=== PATIENT | male | born 1940 | race Caucasian/White ===

== ENCOUNTER 2022-10-01 07:14 | Inpatient (IN) | payer OTHER ==
[~2022-10-01] VITALS: Ht 180.3 cm; Wt 77.1 kg
[2022-10-01 07:15] VITALS: BP_SYST 113
[2022-10-01] MEDS ORDERED: ASPIRIN 81 MG TAB.CHEW PO ONE (07:30)
[2022-10-01] MEDS ORDERED: dilTIAZem HCL IVP 5 MG/ML VIAL IVP ONE ×2 (07:30→09:15)
[2022-10-01 07:45] LABS: BASOPHILS # (AUTO) 0.1 K/uL (0.0-0.2); BASOPHILS % (AUTO) 0.9 % (0.0-2.0); EOSINOPHILS # (AUTO) 0.1 K/uL (0.0-0.4); EOSINOPHILS % (AUTO) 2.4 % (0.0-4.0); LYMPHOCYTES # (AUTO) 1.1 K/uL (1.0-5.5); LYMPHOCYTES % (AUTO) 19.7 % (20.5-51.5); MEAN CORPUSCULAR HEMOGLOBIN 18 pg (27-31); MEAN CORPUSCULAR HGB CONC 31 % (32-36); MEAN CORPUSCULAR VOLUME 59 fL (79.0-98.0); MONOCYTES # (AUTO) 0.4 K/uL (0.0-1.0); MONOCYTES % (AUTO) 6.4 % (1.7-9.3); NEUTROPHILS # (AUTO) 4.1 K/uL (1.8-7.7); NEUTROPHILS % (AUTO) 70.6 % (40.0-70.0); PLATELET COUNT (AUTO) 294 K/uL (130-430); RED BLOOD CELL COUNT(AUTO) 3.74 MIL/uL (4.2-6.2); RED CELL DISTRIBUTION WIDTH 17.9 % (9.0-15.0); WHITE BLOOD COUNT (AUTO) 5.8 K/uL (4.8-10.8)
[2022-10-01 08:04] LABS: HEMOGLOBIN 6.7 g/dL (14.0-18.0)
[2022-10-01 08:07] LABS: ANION GAP 10 (5-15); CALCIUM 8.7 mg/dL (8.4-11.0); CHLORIDE 105 mmol/L (98-107); CREATININE 1.07 mg/dL (0.55-1.30); GLUCOSE 141 mg/dL (70-99); UREA NITROGEN, BLOOD 22 mg/dL (8-21)
[2022-10-01 08:25] LABS: ALANINE AMINOTRANSFERASE 31 U/L (12-78); ALBUMIN 3.7 g/dL (3.4-4.8); ASPARTATE AMINOTRANSFERASE 30 U/L (10-37); TOTAL BILIRUBIN 0.4 mg/dL (0.0-1.0)
[2022-10-01] MEDS ORDERED: NACL 0.9% 1,000 ML IV ONE (09:15)
[2022-10-01] MEDS ORDERED: CARVEDILOL 3.125 MG TABLET (COREG) PO ONE (11:15)
[2022-10-01] MEDS ORDERED: CARVEDILOL 6.25 MG TABLET (COREG) PO ONE (11:15)
[2022-10-01] MEDS ORDERED: PANTOPRAZOLE SODIUM 40 MG TAB PO ONE (13:45)
[2022-10-01] MEDS ORDERED: POLYETHYLENE GLYCOL 3350, 17 GM/ POWD.PACK PO ONE (14:15)
[2022-10-01] MEDS: SOD FERRIC GLUC COMPLEX/SUC 125 MG in NS 100 ML IV SCH (15:00)
[2022-10-01 15:50] VITALS: BP_SYST 121
[2022-10-01 16:40] VITALS: BP_SYST 115
[2022-10-01 16:45] VITALS: BP_SYST 115; BP_SYST 126
[2022-10-01 20:00] VITALS: BP_SYST 123
[2022-10-01] MEDS: CARVEDILOL 3.125 MG TABLET (COREG) PO SCH (21:00)
[2022-10-02] VITALS: BP_SYST 130
[2022-10-02 06:57] LABS: BASOPHILS # (AUTO) 0.1 K/uL (0.0-0.2); BASOPHILS % (AUTO) 1.1 % (0.0-2.0); EOSINOPHILS # (AUTO) 0.2 K/uL (0.0-0.4); EOSINOPHILS % (AUTO) 2.4 % (0.0-4.0); HEMATOCRIT 24.7 % (36-54); LYMPHOCYTES # (AUTO) 1.2 K/uL (1.0-5.5); LYMPHOCYTES % (AUTO) 16.7 % (20.5-51.5); MEAN CORPUSCULAR HEMOGLOBIN 21 pg (27-31); MEAN CORPUSCULAR HGB CONC 32 % (32-36); MEAN CORPUSCULAR VOLUME 64 fL (79.0-98.0); MONOCYTES # (AUTO) 0.6 K/uL (0.0-1.0); MONOCYTES % (AUTO) 8.1 % (1.7-9.3); NEUTROPHILS # (AUTO) 5.3 K/uL (1.8-7.7); NEUTROPHILS % (AUTO) 71.7 % (40.0-70.0); PLATELET COUNT (AUTO) 244 K/uL (130-430); RED BLOOD CELL COUNT(AUTO) 3.87 MIL/uL (4.2-6.2); RED CELL DISTRIBUTION WIDTH 24.4 % (9.0-15.0); WHITE BLOOD COUNT (AUTO) 7.5 K/uL (4.8-10.8)
[2022-10-02 07:44] LABS: ANION GAP 5 (5-15); CALCIUM 8.5 mg/dL (8.4-11.0); CHLORIDE 108 mmol/L (98-107); CREATININE 0.98 mg/dL (0.55-1.30); GLUCOSE 89 mg/dL (70-99); PHOSPHORUS 2.9 mg/dL (2.7-4.5); TOTAL IRON BIND. CAPACITY 435 ug/dL (250-450); UREA NITROGEN, BLOOD 17 mg/dL (8-21)
[2022-10-02 08:08] VITALS: BP_SYST 149
[2022-10-02 08:08] LABS: HEMOGLOBIN 7.9 g/dL (14.0-18.0)
[2022-10-02] MEDS: POLYETHYLENE GLYCOL 3350, 17 GM/ POWD.PACK PO SCH (08:26)
[2022-10-02] MEDS: CARVEDILOL 3.125 MG TABLET (COREG) PO SCH ×2 (08:26→21:00)
[2022-10-02 09:45] LABS: PROTHROMBIN TIME 10.4 SECS (9.5-12.5)
[2022-10-02 11:39] VITALS: BP_SYST 121
[2022-10-02] MEDS: POTASSIUM CHLORIDE 30 MEQ in NACL 0.9% 1,000 ML IV SCH ×2 (11:42→22:00)
[2022-10-02] MEDS: SOD FERRIC GLUC COMPLEX/SUC 125 MG in NS 100 ML IV SCH (15:44)
[2022-10-02 16:20] VITALS: BP_SYST 130
[2022-10-02] MEDS ORDERED: BISACODYL 5 MG TABLET.DR (DULCOLAX) PO ONE (17:00)
[2022-10-02] MEDS ORDERED: GOLYTELY / COLYTE SOLUTION 4 LITERS PO ONE (18:00)
[2022-10-02 20:00] VITALS: BP_SYST 147
[2022-10-03 08:00] VITALS: BP_SYST 140
[2022-10-03 08:16] LABS: ANION GAP 8 (5-15); CALCIUM 8.6 mg/dL (8.4-11.0); CHLORIDE 109 mmol/L (98-107); CREATININE 0.98 mg/dL (0.55-1.30); GLUCOSE 85 mg/dL (70-99); UREA NITROGEN, BLOOD 15 mg/dL (8-21)
[2022-10-03] MEDS ORDERED: MEPERIDINE 100 MG INJ. 100 MG/ML VIAL ONE (08:16)
[2022-10-03] MEDS ORDERED: MIDAZOLAM HCL 5 MG/5 ML VIAL ONE (08:16)
[2022-10-03] MEDS ORDERED: KCL 20 mEq in 100 mL (PREMIX) 100 ML IV ONE (09:00)
[2022-10-03 09:29] LABS: BASOPHILS # (AUTO) 0.1 K/uL (0.0-0.2); BASOPHILS % (AUTO) 1.1 % (0.0-2.0); EOSINOPHILS # (AUTO) 0.3 K/uL (0.0-0.4); EOSINOPHILS % (AUTO) 3.6 % (0.0-4.0); HEMATOCRIT 25.1 % (36-54); HEMOGLOBIN 7.9 g/dL (14.0-18.0); LYMPHOCYTES # (AUTO) 1.8 K/uL (1.0-5.5); LYMPHOCYTES % (AUTO) 24.9 % (20.5-51.5); MEAN CORPUSCULAR HEMOGLOBIN 20 pg (27-31); MEAN CORPUSCULAR HGB CONC 31 % (32-36); MEAN CORPUSCULAR VOLUME 65 fL (79.0-98.0); MONOCYTES # (AUTO) 0.5 K/uL (0.0-1.0); MONOCYTES % (AUTO) 7.6 % (1.7-9.3); NEUTROPHILS # (AUTO) 4.5 K/uL (1.8-7.7); NEUTROPHILS % (AUTO) 62.8 % (40.0-70.0); PLATELET COUNT (AUTO) 269 K/uL (130-430); RED BLOOD CELL COUNT(AUTO) 3.87 MIL/uL (4.2-6.2); RED CELL DISTRIBUTION WIDTH 24.8 % (9.0-15.0)
[2022-10-03 09:55] LABS: WHITE BLOOD COUNT (AUTO) 7.2 K/uL (4.8-10.8)
[2022-10-03] MEDS: POLYETHYLENE GLYCOL 3350, 17 GM/ POWD.PACK PO SCH (10:50)
[2022-10-03] MEDS: CARVEDILOL 3.125 MG TABLET (COREG) PO SCH ×2 (10:50→20:32)
[2022-10-03] MEDS: POTASSIUM CHLORIDE 30 MEQ in NACL 0.9% 1,000 ML IV SCH ×3 (10:51→22:24)
[2022-10-03] MEDS ORDERED: BISACODYL 5 MG TABLET.DR (DULCOLAX) PO ONE (17:00)
[2022-10-03] MEDS: SOD FERRIC GLUC COMPLEX/SUC 125 MG in NS 100 ML IV SCH (17:08)
[2022-10-03] MEDS ORDERED: GOLYTELY / COLYTE SOLUTION 4 LITERS PO ONE (18:00)
[2022-10-03 20:00] VITALS: BP_SYST 147
[2022-10-04] VITALS: BP_SYST 140
[2022-10-04 07:12] LABS: BASOPHILS # (AUTO) 0.1 K/uL (0.0-0.2); BASOPHILS % (AUTO) 1.1 % (0.0-2.0); EOSINOPHILS # (AUTO) 0.3 K/uL (0.0-0.4); EOSINOPHILS % (AUTO) 4.2 % (0.0-4.0); HEMOGLOBIN 8.2 g/dL (14.0-18.0); LYMPHOCYTES # (AUTO) 1.5 K/uL (1.0-5.5); LYMPHOCYTES % (AUTO) 21.4 % (20.5-51.5); MEAN CORPUSCULAR HEMOGLOBIN 21 pg (27-31); MEAN CORPUSCULAR HGB CONC 32 % (32-36); MEAN CORPUSCULAR VOLUME 65 fL (79.0-98.0); MONOCYTES # (AUTO) 0.6 K/uL (0.0-1.0); NEUTROPHILS # (AUTO) 4.6 K/uL (1.8-7.7); NEUTROPHILS % (AUTO) 65.3 % (40.0-70.0); PLATELET COUNT (AUTO) 288 K/uL (130-430); RED CELL DISTRIBUTION WIDTH 25.6 % (9.0-15.0); WHITE BLOOD COUNT (AUTO) 7.1 K/uL (4.8-10.8)
[2022-10-04 07:27] LABS: ANION GAP 7 (5-15); CALCIUM 8.7 mg/dL (8.4-11.0); CHLORIDE 109 mmol/L (98-107); CREATININE 0.97 mg/dL (0.55-1.30); GLUCOSE 92 mg/dL (70-99); UREA NITROGEN, BLOOD 10 mg/dL (8-21)
[2022-10-04] MEDS ORDERED: SIMETHICONE 40 MG/0.6 ML ML ONE (09:07)
[2022-10-04] MEDS ORDERED: MEPERIDINE 100 MG INJ. 100 MG/ML VIAL ONE (09:07)
[2022-10-04] MEDS ORDERED: MIDAZOLAM HCL 5 MG/5 ML VIAL ONE (09:08)
[2022-10-04] MEDS: POLYETHYLENE GLYCOL 3350, 17 GM/ POWD.PACK PO SCH (09:36)
[2022-10-04] MEDS: CARVEDILOL 6.25 MG TABLET (COREG) PO SCH ×2 (09:42→21:37)
[2022-10-04] MEDS ORDERED: POLYETHYLENE GLYCOL 3350, 17 GM/ POWD.PACK PO ONE (10:00)
[2022-10-04 11:57] VITALS: BP_SYST 145
[2022-10-04] MEDS: POTASSIUM CHLORIDE 30 MEQ in NACL 0.9% 1,000 ML IV SCH (18:06)
[2022-10-04] MEDS: SOD FERRIC GLUC COMPLEX/SUC 125 MG in NS 100 ML IV SCH (18:08)
[2022-10-04 20:40] VITALS: BP_SYST 129
[2022-10-05] VITALS: BP_SYST 124
[2022-10-05] MEDS: POTASSIUM CHLORIDE 30 MEQ in NACL 0.9% 1,000 ML IV SCH ×3 (01:12→21:03)
[2022-10-05 08:00] VITALS: BP_SYST 158
[2022-10-05] MEDS: CARVEDILOL 6.25 MG TABLET (COREG) PO SCH ×2 (09:19→20:57)
[2022-10-05] MEDS: POLYETHYLENE GLYCOL 3350, 17 GM/ POWD.PACK PO SCH (09:19)
[2022-10-05] MEDS ORDERED: DIATR MEGLU/DIATRIZ SOD 30 ML SOLUTION PO ONE (10:19)
[2022-10-05 12:00] VITALS: BP_SYST 150
[2022-10-05 12:31] LABS: PROTHROMBIN TIME 10.2 SECS (9.5-12.5)
[2022-10-05] MEDS: SOD FERRIC GLUC COMPLEX/SUC 125 MG in NS 100 ML IV SCH (15:00)
[2022-10-05 20:41] VITALS: BP_SYST 148
[2022-10-06 01:14] VITALS: BP_SYST 148
[2022-10-06] MEDS: POTASSIUM CHLORIDE 30 MEQ in NACL 0.9% 1,000 ML IV SCH ×2 (06:28→17:21)
[2022-10-06 07:59] VITALS: BP_SYST 142
[2022-10-06 08:02] LABS: BASOPHILS # (AUTO) 0.1 K/uL (0.0-0.2); BASOPHILS % (AUTO) 1.1 % (0.0-2.0); EOSINOPHILS # (AUTO) 0.2 K/uL (0.0-0.4); EOSINOPHILS % (AUTO) 4.3 % (0.0-4.0); HEMATOCRIT 25.4 % (36-54); LYMPHOCYTES # (AUTO) 1.4 K/uL (1.0-5.5); LYMPHOCYTES % (AUTO) 24.9 % (20.5-51.5); MEAN CORPUSCULAR HEMOGLOBIN 21 pg (27-31); MEAN CORPUSCULAR HGB CONC 31 % (32-36); MEAN CORPUSCULAR VOLUME 66 fL (79.0-98.0); MONOCYTES # (AUTO) 0.5 K/uL (0.0-1.0); MONOCYTES % (AUTO) 8.4 % (1.7-9.3); NEUTROPHILS # (AUTO) 3.5 K/uL (1.8-7.7); PLATELET COUNT (AUTO) 273 K/uL (130-430); RED BLOOD CELL COUNT(AUTO) 3.83 MIL/uL (4.2-6.2); RED CELL DISTRIBUTION WIDTH 28.1 % (9.0-15.0); WHITE BLOOD COUNT (AUTO) 5.7 K/uL (4.8-10.8)
[2022-10-06 08:32] LABS: ALANINE AMINOTRANSFERASE 17 U/L (12-78); ALBUMIN 3.2 g/dL (3.4-4.8); ANION GAP 8 (5-15); ASPARTATE AMINOTRANSFERASE 16 U/L (10-37); CALCIUM 8.7 mg/dL (8.4-11.0); CHLORIDE 109 mmol/L (98-107); CREATININE 1.03 mg/dL (0.55-1.30); GLUCOSE 87 mg/dL (70-99); TOTAL BILIRUBIN 0.7 mg/dL (0.0-1.0); UREA NITROGEN, BLOOD 7 mg/dL (8-21)
[2022-10-06] MEDS: POLYETHYLENE GLYCOL 3350, 17 GM/ POWD.PACK PO SCH (09:00)
[2022-10-06 09:04] LABS: NEUTROPHILS % (AUTO) 61.3 % (40.0-70.0)
[2022-10-06] MEDS: CARVEDILOL 6.25 MG TABLET (COREG) PO SCH ×2 (09:45→20:38)
[2022-10-06 12:00] VITALS: BP_SYST 138
[2022-10-06] MEDS: SOD FERRIC GLUC COMPLEX/SUC 125 MG in NS 100 ML IV SCH (13:56)
[2022-10-06 16:55] VITALS: BP_SYST 140
[2022-10-06 20:55] VITALS: BP_SYST 148
[2022-10-07 00:01] VITALS: BP_SYST 131
[2022-10-07] MEDS: POTASSIUM CHLORIDE 30 MEQ in NACL 0.9% 1,000 ML IV SCH ×2 (02:54→14:39)
[2022-10-07 08:00] VITALS: BP_SYST 139
[2022-10-07] MEDS: CARVEDILOL 6.25 MG TABLET (COREG) PO SCH ×2 (09:55→21:02)
[2022-10-07] MEDS: POLYETHYLENE GLYCOL 3350, 17 GM/ POWD.PACK PO SCH (09:56)
[2022-10-07] MEDS: NEOMYCIN SULFATE 500 MG TABLET PO SCH ×2 (11:37→17:32)
[2022-10-07] MEDS: SOD FERRIC GLUC COMPLEX/SUC 125 MG in NS 100 ML IV SCH (14:38)
[2022-10-07 15:13] VITALS: BP_SYST 139
[2022-10-07 20:00] VITALS: BP_SYST 143
[2022-10-08] VITALS: BP_SYST 144
[2022-10-08] MEDS: POTASSIUM CHLORIDE 30 MEQ in NACL 0.9% 1,000 ML IV SCH ×3 (01:04→21:07)
[2022-10-08] MEDS: NEOMYCIN SULFATE 500 MG TABLET PO SCH ×3 (01:04→11:41)
[2022-10-08 07:06] LABS: BASOPHILS # (AUTO) 0.1 K/uL (0.0-0.2); BASOPHILS % (AUTO) 1.1 % (0.0-2.0); EOSINOPHILS # (AUTO) 0.2 K/uL (0.0-0.4); HEMATOCRIT 26.7 % (36-54); HEMOGLOBIN 8.4 g/dL (14.0-18.0); LYMPHOCYTES # (AUTO) 1.2 K/uL (1.0-5.5); LYMPHOCYTES % (AUTO) 17.6 % (20.5-51.5); MEAN CORPUSCULAR HEMOGLOBIN 21 pg (27-31); MEAN CORPUSCULAR HGB CONC 32 % (32-36); MEAN CORPUSCULAR VOLUME 67 fL (79.0-98.0); MONOCYTES # (AUTO) 0.7 K/uL (0.0-1.0); MONOCYTES % (AUTO) 9.5 % (1.7-9.3); NEUTROPHILS # (AUTO) 4.8 K/uL (1.8-7.7); NEUTROPHILS % (AUTO) 68.8 % (40.0-70.0); PLATELET COUNT (AUTO) 230 K/uL (130-430); RED BLOOD CELL COUNT(AUTO) 3.97 MIL/uL (4.2-6.2); RED CELL DISTRIBUTION WIDTH 29.3 % (9.0-15.0)
[2022-10-08 07:40] LABS: ALANINE AMINOTRANSFERASE 19 U/L (12-78); ALBUMIN 3.1 g/dL (3.4-4.8); ANION GAP 3 (5-15); ASPARTATE AMINOTRANSFERASE 19 U/L (10-37); CALCIUM 8.2 mg/dL (8.4-11.0); CHLORIDE 108 mmol/L (98-107); CREATININE 0.99 mg/dL (0.55-1.30); GLUCOSE 86 mg/dL (70-99); TOTAL BILIRUBIN 0.5 mg/dL (0.0-1.0); UREA NITROGEN, BLOOD 8 mg/dL (8-21)
[2022-10-08 07:56] LABS: BILIRUBIN,URINE NEGATIVE (NEGATIVE); BLOOD, URINE NEGATIVE (NEGATIVE); CLARITY/URINE CLEAR (CLEAR); COLOR,URINE YELLOW (YELLOW); GLUCOSE,URINE NEGATIVE (NEGATIVE); KETONES,URINE NEGATIVE (NEGATIVE); LEUKOCYTE ESTERASE ,URINE NEGATIVE (NEGATIVE); NITRITE, URINE NEGATIVE (NEGATIVE); PH,URINE 6.5 (5.0-8.0); PROTEIN URINE NEGATIVE (NEGATIVE); UROBILINOGEN,URINE 0.2 (0.2-1.0)
[2022-10-08] MEDS: CARVEDILOL 6.25 MG TABLET (COREG) PO SCH ×2 (09:00→21:07)
[2022-10-08] MEDS: POLYETHYLENE GLYCOL 3350, 17 GM/ POWD.PACK PO SCH (09:00)
[2022-10-08 11:32] VITALS: BP_SYST 121
[2022-10-08] MEDS ORDERED: hydrALAZINE HCL 20 MG/ML VIAL IVP PRN (13:30)
[2022-10-08] MEDS ORDERED: HYDROmorphone 1 MG/ML INJ. CARTRIDGE IVP PRN ×2 (13:30)
[2022-10-08] MEDS ORDERED: METOCLOPRAMIDE HCL 10 MG/2 ML VIAL IVP PRN (13:30)
[2022-10-08] MEDS ORDERED: MEPERIDINE HCL/PF 25 MG/ML DISP.SYRIN IVP PRN (13:30)
[2022-10-08] MEDS ORDERED: LABETALOL 100 MG/ 20ML VIAL IVP PRN (13:30)
[2022-10-08] MEDS ORDERED: LR 1,000 ML IV SCH (13:30)
[2022-10-08] MEDS ORDERED: BUPIVACAINE LIPOSOME/PF 266 MG/20 ML VIAL INFIL ONE (14:18)
[2022-10-08] MEDS ORDERED: ACETAMINOPHEN I.V. 1000 MG 100 ML IV ONE (14:33)
[2022-10-08] MEDS ORDERED: ONDANSETRON 4 MG ODT TAB PO PRN (17:00)
[2022-10-08] MEDS ORDERED: traMADol HCL HCL 50 MG TABLET (ULTRAM) PO PRN (17:00)
[2022-10-08 17:30] VITALS: BP_SYST 136
[2022-10-08] MEDS: ACETAMINOPHEN 325 MG TABLET PO SCH ×2 (18:25→23:39)
[2022-10-08] MEDS: cefOXitin SODIUM 1 GM in D5W 50 ML IV SCH ×2 (18:26→23:37)
[2022-10-08] MEDS: SOD FERRIC GLUC COMPLEX/SUC 125 MG in NS 100 ML IV SCH (18:27)
[2022-10-08 20:00] VITALS: BP_SYST 124
[2022-10-08] MEDS: metroNIDAZOLE 250 mg/NS 50 ML IV SCH (21:05)
[2022-10-09] VITALS: BP_SYST 131
[2022-10-09] MEDS: ACETAMINOPHEN 325 MG TABLET PO SCH ×6 (03:00→22:38)
[2022-10-09] MEDS: cefOXitin SODIUM 1 GM in D5W 50 ML IV SCH (05:53)
[2022-10-09] MEDS: metroNIDAZOLE 250 mg/NS 50 ML IV SCH ×2 (05:53→13:55)
[2022-10-09 07:20] LABS: BASOPHILS % (AUTO) 0.2 % (0.0-2.0); EOSINOPHILS % (AUTO) 0.1 % (0.0-4.0); HEMATOCRIT 26.2 % (36-54); HEMOGLOBIN 8.2 g/dL (14.0-18.0); LYMPHOCYTES # (AUTO) 0.5 K/uL (1.0-5.5); LYMPHOCYTES % (AUTO) 3.6 % (20.5-51.5); MEAN CORPUSCULAR HEMOGLOBIN 21 pg (27-31); MEAN CORPUSCULAR HGB CONC 32 % (32-36); MEAN CORPUSCULAR VOLUME 68 fL (79.0-98.0); MONOCYTES # (AUTO) 0.5 K/uL (0.0-1.0); MONOCYTES % (AUTO) 3.3 % (1.7-9.3); NEUTROPHILS # (AUTO) 13.2 K/uL (1.8-7.7); PLATELET COUNT (AUTO) 215 K/uL (130-430); RED BLOOD CELL COUNT(AUTO) 3.86 MIL/uL (4.2-6.2); RED CELL DISTRIBUTION WIDTH 29.5 % (9.0-15.0); WHITE BLOOD COUNT (AUTO) 14.3 K/uL (4.8-10.8)
[2022-10-09 07:47] LABS: ALANINE AMINOTRANSFERASE 18 U/L (12-78); ALBUMIN 2.9 g/dL (3.4-4.8); ANION GAP 9 (5-15); ASPARTATE AMINOTRANSFERASE 20 U/L (10-37); C-REACTIVE PROTEIN QUANT 6.2 mg/dL (0-0.5); CALCIUM 8.3 mg/dL (8.4-11.0); CHLORIDE 105 mmol/L (98-107); CREATININE 1.25 mg/dL (0.55-1.30); GLUCOSE 144 mg/dL (70-99); TOTAL BILIRUBIN 0.9 mg/dL (0.0-1.0); UREA NITROGEN, BLOOD 13 mg/dL (8-21)
[2022-10-09] MEDS: CARVEDILOL 6.25 MG TABLET (COREG) PO SCH ×2 (08:39→20:23)
[2022-10-09] MEDS: POTASSIUM CHLORIDE 30 MEQ in NACL 0.9% 1,000 ML IV SCH (11:08)
[2022-10-09 11:27] VITALS: BP_SYST 114
[2022-10-09] MEDS ORDERED: DESFLURANE 15 MIN GAS INH ONE (12:30)
[2022-10-09] MEDS ORDERED: MIDAZOLAM HCL 5 MG/5 ML VIAL IVP ONE (12:30)
[2022-10-09] MEDS ORDERED: KETOROLAC TROMETHAMINE 30 MG VIAL IVP ONE (12:30)
[2022-10-09] MEDS ORDERED: PROPOFOL 200MG/ 20ML VIAL (DIPRIVAN) IV ONE (12:30)
[2022-10-09] MEDS ORDERED: ONDANSETRON HCL 4 MG/2 ML VIAL IVP ONE (12:30)
[2022-10-09] MEDS ORDERED: ROCURONIUM BROMIDE 10 MG/ML (ZEMURON) IV ONE (12:30)
[2022-10-09] MEDS ORDERED: NS IRRIG SOLN 1000 ML IR ONE (12:30)
[2022-10-09] MEDS ORDERED: SUGAMMADEX SODIUM 200 MG/2 ML VIAL IV ONE (12:30)
[2022-10-09] MEDS ORDERED: BUPIVACAINE /EPINEPHRINE/PF 0.25% 30 ML VIAL INJ ONE (12:30)
[2022-10-09] MEDS ORDERED: INDOCYANINE GREEN 25 MG VIAL IV ONE (12:30)
[2022-10-09] MEDS ORDERED: DEXAMETHASONE SOD PHOSPHATE 4 MG/ML VIAL IVP ONE (12:30)
[2022-10-09] MEDS ORDERED: fentaNYL CITRATE 250 MCG/5 ML AMP IV ONE (12:30)
[2022-10-09] MEDS ORDERED: CEFAZOLIN 2 GM IVPB PREMIX 50 ML IV ONE (12:30)
[2022-10-09] MEDS ORDERED: LR 1,000 ML IV.SOLN IV ONE (12:30)
[2022-10-09] MEDS ORDERED: PIPERACILLIN/TAZO 3.375/DEX-IS 50 ML IV ONE (13:00)
[2022-10-09 14:10] LABS: NEUTROPHILS % (AUTO) 92.8 % (40.0-70.0)
[2022-10-09 15:31] VITALS: BP_SYST 114
[2022-10-09] MEDS: PIPERACILLIN/TAZO 3.375/DEX-IS 50 ML IV SCH ×2 (17:20→23:36)
[2022-10-09 20:21] VITALS: BP_SYST 146
[2022-10-10 00:10] VITALS: BP_SYST 116
[2022-10-10] MEDS: ACETAMINOPHEN 325 MG TABLET PO SCH ×3 (03:00→11:00)
[2022-10-10] MEDS: PIPERACILLIN/TAZO 3.375/DEX-IS 50 ML IV SCH (06:04)
[2022-10-10 07:07] LABS: BASOPHILS % (AUTO) 0.3 % (0.0-2.0); EOSINOPHILS # (AUTO) 0.2 K/uL (0.0-0.4); EOSINOPHILS % (AUTO) 1.4 % (0.0-4.0); HEMATOCRIT 26.3 % (36-54); HEMOGLOBIN 8.3 g/dL (14.0-18.0); LYMPHOCYTES # (AUTO) 0.8 K/uL (1.0-5.5); LYMPHOCYTES % (AUTO) 7.1 % (20.5-51.5); MEAN CORPUSCULAR HEMOGLOBIN 22 pg (27-31); MEAN CORPUSCULAR HGB CONC 32 % (32-36); MEAN CORPUSCULAR VOLUME 68 fL (79.0-98.0); MONOCYTES # (AUTO) 0.5 K/uL (0.0-1.0); MONOCYTES % (AUTO) 4.2 % (1.7-9.3); NEUTROPHILS # (AUTO) 10.2 K/uL (1.8-7.7); PLATELET COUNT (AUTO) 218 K/uL (130-430); RED BLOOD CELL COUNT(AUTO) 3.84 MIL/uL (4.2-6.2); RED CELL DISTRIBUTION WIDTH 30.2 % (9.0-15.0); WHITE BLOOD COUNT (AUTO) 11.7 K/uL (4.8-10.8)
[2022-10-10 08:12] VITALS: BP_SYST 151
[2022-10-10] MEDS: CARVEDILOL 6.25 MG TABLET (COREG) PO SCH (08:52)
[2022-10-10 11:12] VITALS: BP_SYST 134
[2022-10-10] MEDS ORDERED: COR6.25 PO (11:54)
[2022-10-10] MEDS ORDERED: CEPH250C PO (11:54)
[2022-10-10] MEDS ORDERED: LACT1CAP62 PO (11:54)
[2022-10-10 12:38] VITALS: BP_SYST 134
== END 2022-10-10 14:27 | disposition home or self-care (01) | DRG 329 ==
LOC: SED 07:14 → STU 09:15 → SMU 10-06 11:49
PROVIDERS: ADMIT Specialist; ATTEND Specialist
PROC: 30233N1 Transfusion of Nonautologous Red Blood Cells into Peripheral Vein, Percutaneous Approach (ICD-10-PCS; 2022-10-01)
PROC: 0DB98ZX Excision of Duodenum, Via Natural or Artificial Opening Endoscopic, Diagnostic (ICD-10-PCS; 2022-10-03)
PROC: 0DB78ZX Excision of Stomach, Pylorus, Via Natural or Artificial Opening Endoscopic, Diagnostic (ICD-10-PCS; 2022-10-03)
PROC: 0DB68ZZ Excision of Stomach, Via Natural or Artificial Opening Endoscopic (ICD-10-PCS; 2022-10-03)
PROC: 0DBH8ZX Excision of Cecum, Via Natural or Artificial Opening Endoscopic, Diagnostic (ICD-10-PCS; 2022-10-04)
PROC: 8E0W4CZ Robotic Assisted Procedure of Trunk Region, Percutaneous Endoscopic Approach (ICD-10-PCS; 2022-10-08)
PROC: 0DTF4ZZ Resection of Right Large Intestine, Percutaneous Endoscopic Approach (ICD-10-PCS; principal; 2022-10-08 12:43)
DX: C18.9 Malignant neoplasm of colon, unspecified (principal); K29.71 Gastritis, unspecified, with bleeding; K57.31 Diverticulosis of large intestine without perforation or abscess with bleeding; K63.3 Ulcer of intestine; K64.8 Other hemorrhoids; D50.9 Iron deficiency anemia, unspecified; K31.7 Polyp of stomach and duodenum; K63.9 Disease of intestine, unspecified; I48.0 Paroxysmal atrial fibrillation; Z20.822 Contact with and (suspected) exposure to COVID-19; K42.9 Umbilical hernia without obstruction or gangrene; Z79.01 Long term (current) use of anticoagulants; Z87.891 Personal history of nicotine dependence
CPT/HCPCS: 36415; 43239; 43251; 45380; 71045; 71260-TC; 76376; 80048; 80053; 81003; 82728; 82962; 83540; 83550; 83735; 83880; 84100; 84484; 85025; 85610-TC; 85730-TC; 86140; 86886; 86900; 86901; 86920; 87081; 88305; 88307; 88309; 88312; 88313; 93005; 93306; 96361; 96374; 96375; 96376; 99291; C1727; C9290; G0378; J0131; J0690; J0694; J1100; J1885; J2175; J2250; J2405; J2543; J2704; J2916; J3010; J3480; J3490; J7030; J7060; J7120; P9021; Q9964; Q9967